=== PATIENT | male | born 2000 | race Two or more races ===

== ENCOUNTER 2024-07-07 09:32 | Emergency (ER) | payer MEDICAID, SELFPAY ==
[2024-07-07 09:33] VITALS: PULSE 88; RESP 18; O2SAT 99
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
[2024-07-07 09:54] VITALS: BP 134/92; PULSE 64; RESP 16; TEMP 37.1; O2SAT 99; BMI 33.3
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
[2024-07-07] MEDS: IBUPROFEN TAB 400 MG TABLET 800 MG PO (10:28)
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
== END 2024-07-07 12:44 | disposition home or self-care (01) ==
PROVIDERS: Emergency Provider Emergency Medicine
DX: S39.92XA Unspecified injury of lower back, initial encounter (principal); S09.90XA Unspecified injury of head, initial encounter; M54.2 Cervicalgia; V89.2XXA Person injured in unspecified motor-vehicle accident, traffic, initial encounter
CPT/HCPCS: 70450; 72125; 72131; 99284; A9270